=== PATIENT | female | born 1945 | race Caucasian/White ===

== ENCOUNTER 2023-10-19 12:34 | Day surgery (SDC) | payer MEDICARE ==
[2023-10-19] MEDS ORDERED: Depo-Medrol 40 MG/ML IM ONE (12:35)
[2023-10-19] MEDS ORDERED: BUPIVACAINE 0.5% VIAL IJ ONE (12:35)
[2023-10-19] MEDS ORDERED: DIPRIVAN 200 MG/20 ML IV ONE (14:37)
[2023-10-19] MEDS ORDERED: MORPHINE SULFATE 2 MG INJ ONE (14:57)
[2023-10-19] MEDS ORDERED: Lactated Ringers 1,000 ML IV ONE (15:31)
--- NOTE | 2023-10-19 16:55 | XRAY ---
Indication: Left hip and greater trochanter bursa injection. Intraoperative fluoroscopy provided for 14 seconds. 2 digital spot image submitted for interpretation demonstrates needle tips projecting lateral to left femur neck and greater trochanter. Small amount of contrast injected for both needle tip placement. Correlate with intraoperative findings/report.
--- NOTE | 2023-10-19 17:04 | XRAY ---
14 seconds of fluoroscopy was used in surgery for a left intra-articular hip and greater trochanteric bursa injection.
== END 2023-10-19 15:22 | disposition home or self-care (01) ==
LOC: SDC-PAIN 12:34
PROVIDERS: ATTEND Psychiatry & Neurology Pain Medicine
DX: M16.12 Unilateral primary osteoarthritis, left hip (principal)
CPT/HCPCS: 20610; 73502; 77002; J2270; J2704; Q9966

== ENCOUNTER 2024-02-16 15:37 | Day surgery (SDC) | payer MEDICARE ==
[2024-02-16] MEDS ORDERED: LIDOCAINE HCL 1% AMPUL 5 ML IJ ONE (15:38)
[2024-02-16] MEDS ORDERED: Depo-Medrol 40 MG/ML IM ONE (15:38)
[2024-02-16] MEDS ORDERED: BUPIVACAINE 0.5% VIAL IJ ONE (15:38)
--- NOTE | 2024-02-16 18:34 | XRAY ---
Indication: Left knee injection. Intraoperative fluoroscopy provided for 7 seconds. Single digital spot image submitted for interpretation demonstrates needle tip projecting over left femur intercondylar notch. Small amount of contrast injected for needle tip placement. Correlate with intraoperative findings/report.
--- NOTE | 2024-02-17 09:21 | XRAY ---
7 seconds of fluoroscopy was used in surgery for a left intra-articular knee injection.
== END 2024-02-16 16:57 | disposition home or self-care (01) ==
LOC: SDC-PAIN 15:37
PROVIDERS: ATTEND Psychiatry & Neurology Pain Medicine
DX: M17.12 Unilateral primary osteoarthritis, left knee (principal)
CPT/HCPCS: 20610; 73560; 77002; Q9966